=== PATIENT | female | born 1960 | race Caucasian/White ===

== ENCOUNTER 2020-11-10 10:53 | Inpatient (IN) | payer OTHER ==
[~2020-11-10] VITALS: Ht 157.5 cm; Wt 77.2 kg
--- NOTE | 2020-11-10 10:53 | NUR ---
PT TO ROOM WITH STEADY GAIT
[2020-11-10 11:31] LABS: HEMATOCRIT 46.9 % (37.0-47.0); HEMOGLOBIN 15.8 g/dl (12.0-16.0); IMMATURE GRANULOCYTES 1.9 % (0.0-5.0); MEAN CELL VOLUME 97.7 fL CALC (80.0-100.0); MEAN CORPUSCULAR HGB 32.9 pG CALC (26.0-32.0); MEAN CORPUSCULAR HGB CONC 33.7 g/dL CAL (32.0-36.0); NEUT# 9.87 thou/uL (2.00-7.15); RED BLOOD COUNT 4.8 mill/uL (4.20-5.60); RED CELL DISTRI WIDTH 12.1 % (11.5-15.5)
[2020-11-10 11:42] LABS: ALBUMIN 3.9 g/dL (3.2-5.0); ALKALINE PHOSPHATASE 83 u/l (38-126); ANION GAP 12 (6-22 (CALC)); BILIRUBIN, TOTAL 0.7 mg/dL (0.0-1.4); BUN 14 mg/dL (8-23); BUN/CREATININE RATIO 19 (12-20 (CALC)); CARBON DIOXIDE 29 mmol/l (22-30); CHLORIDE 98 mmol/l (95-108); CREATININE 0.8 mg/dL (0.5-1.0); GFR > 60 ML/MIN (>=60 (CALC)); GFR FOR AFR.AMER. > 60 ML/MIN (>=60 (CALC)); POTASSIUM 3.7 mmol/l (3.5-5.1); SGOT/AST 176 u/l (9-36); SODIUM 136 mmol/l (137-146); TOTAL PROTEIN 7.4 g/dL (6.3-8.2)
[2020-11-10 11:54] LABS: MYOGLOBIN 69 ng/mL (0 - 62)
--- NOTE | 2020-11-10 12:06 | NUR ---
PT RESTING IN BED. VITALS STABLE ON MONITOR. 93% ON 4L/NC, NO DISTRESS NOTED. IV MEDS INFUSING WITHOUT DIFFICULTY. CALL LIGHT WITHIN REACH.
--- NOTE | 2020-11-10 12:53 | NUR ---
PT UP TO BATHROOM WITH STEADY GAIT. ATTACHED TO MONITOR, VITALS STABLE. IV MEDS INFUSING. WILL CONTINUE TO MONITOR.
[2020-11-10 13:17] LABS: URINE BILIRUBIN - DIPSTICK NEGATIVE (NEGATIVE); URINE BLOOD DIPSTICK NEGATIVE (NEGATIVE); URINE COLOR YELLOW; URINE GLUCOSE - DIPSTICK NEGATIVE (NEGATIVE); URINE KETONE NEGATIVE (NEGATIVE); URINE LEUK ESTERASE TRACE (NEGATIVE); URINE PROTEIN - DIPSTICK NEGATIVE (NEG-TRACE); URINE UROBILINOGEN - DIPSTICK 0.2 E.U./dL (0.2)
[2020-11-10 13:21] LABS: URINE NITRITE - DIPSTICK NEGATIVE (Negative)
--- NOTE | 2020-11-10 14:12 | NUR ---
IV MEDS INFUSING WITHOUT DIFFICTULY. STABLE ON MONITOR. CALL LIGHT WITHIN REACH. WILL CONTINUE TO MONITOR PENDING ADMISSION.
--- NOTE | 2020-11-10 14:58 | NUR ---
REPORT GIVEN TO CONI RN, PT ADMITTED TO ICU RM1
--- NOTE | 2020-11-10 15:30 | NUR ---
PT TO ROOM FROM ER PER STRETCHER, PT ALERT/ORIENTED X3, ON 2 LITRES OF OXYGEN N/C WITH SATS 96%, STATES WAS SEEN AT [facility] ER TWO WEEKS AGO FOR COMPLAINT OF SOB AND DIAGNOSED WITH COVID AND STARTED ON ANTIBIOTICS, PT STATES HER HAD COVID THE WEEK BEFORE. SHE STATES SHE JUST WASNT GETTING OVER IT, AND DECIDED TO COME IN TO ER TODAY TO SEE IF SHE NEEDED MORE ANTIBIOTICS. SHE WAS ADMITTED FOR COVID/PNEUMONIA/POSSIBLE SEPSIS AND HYPOXIA. SHE HAS A COUGH THAT IS PRODUCTIVE. LUNGS HEAR RHONCHI, NORMAL SINUS RHYTHM, CALL LIGHT WITHIN REACH, ADVISED PT OF MEDICATIONS AND TESTING WE WOULD DO. SIDE RAILS UP AND ADVISED TO USE CALL LIGHT. PT VOICES UNDERSTANDING. TALKING ON PHONE TO AT THIS TIME WITHOUT ANY SIGNS OF SOB. DENIES ANY COMPLAINTS AT THIS TIME.
[2020-11-10 15:55] VITALS: BP 134/86
--- NOTE | 2020-11-10 17:30 | NUR ---
PT AMBLATORY TO BATHROOM BY SELF. ONCE BACK IN BED, PLACED PULSE OX BACK ON AND PT HAD DROPPED TO 89% WHILE AMBULATING. DENIED ANY INCREASED SOB. PLACED BACK ON O2 @ 2 LITRES N/C, AND SATS WENT BACK UP TO 94%. GAVE PT MEAL TRAY, BUT PT DID NOT LIKE WHAT WAS ON TRAY.
[2020-11-10 18:06] VITALS: BP 135/82
[2020-11-10 20:02] VITALS: BP 129/86
--- NOTE | 2020-11-10 20:30 | NUR ---
patient requesting tylenol with bed time medication for general pain from back surgery.
--- NOTE | 2020-11-10 20:32 | NUR ---
PT DISCONNECTED FROM MONITORS AT THIS TIME. PT UP TO BATHROOM TO VOID, AMBULATED WITHOUT ASSISTANCE. NO APPARENT DISTRESS NOTED. WILL CONTINUE TO MONITOR.
[2020-11-10 22:02] VITALS: BP 116/78
--- NOTE | 2020-11-10 22:23 | NUR ---
REPORT GIVEN BY CONI. PATIENT RESTING IN BED WATCHING TV. RESP EVEN AND UN LABORED, 2L VIA NC IN PLACE. NO S/S OF DISTRESS NOTED. FALL AND SAFTEY PRECAUTIONS IN PLACE. IV INFUSING IV FLUIDS. PLAN OF CARE DISCUSSED. PATIENT INFORM TO CALL WITH ANY QUESTIONS OR CONCERNS.
--- NOTE | 2020-11-10 23:21 | NUR ---
PATIENT RESTING WITH EYES CLOSED. RESP EVEN AND UNLABORED. NO S/S OF DISTRESS NOTED.
[2020-11-11] VITALS (10 sets, daily range): BP systolic 111–154; BP diastolic 70–94
--- NOTE | 2020-11-11 02:00 | NUR ---
PATIENT RESTING WITH EYES CLOSED. RESP EVEN AND UNLABORED. NO S/S OF DISTRESS NOTED.
--- NOTE | 2020-11-11 05:00 | NUR ---
PATIENT AWAKE AND REQUESTING TYLENOL FOR GENERAL PAIN. RESP EVEN AND UNLABORED. NO S/S OF DISTRESS NOTED. FALL AND SAFTEY PRECAUTIONS IN PLACE.
[2020-11-11 07:18] LABS: HEMATOCRIT 41.9 % (37.0-47.0); HEMOGLOBIN 14.2 g/dl (12.0-16.0); IMMATURE GRANULOCYTES 1.9 % (0.0-5.0); MEAN CELL VOLUME 97.7 fL CALC (80.0-100.0); MEAN CORPUSCULAR HGB 33.1 pG CALC (26.0-32.0); MEAN CORPUSCULAR HGB CONC 33.9 g/dL CAL (32.0-36.0); NEUT# 6.74 thou/uL (2.00-7.15); RED BLOOD COUNT 4.29 mill/uL (4.20-5.60); RED CELL DISTRI WIDTH 12.2 % (11.5-15.5)
[2020-11-11 07:56] LABS: ALBUMIN 3.1 g/dL (3.2-5.0); ALKALINE PHOSPHATASE 69 u/l (38-126); ANION GAP 8 (6-22 (CALC)); BILIRUBIN, TOTAL 0.5 mg/dL (0.0-1.4); BUN 13 mg/dL (8-23); BUN/CREATININE RATIO 20 (12-20 (CALC)); C-REACTIVE PROTEIN 4.7 mg/dL (0-0.9); CARBON DIOXIDE 27 mmol/l (22-30); CHLORIDE 105 mmol/l (95-108); CREATININE 0.6 mg/dL (0.5-1.0); GFR > 60 ML/MIN (>=60 (CALC)); GFR FOR AFR.AMER. > 60 ML/MIN (>=60 (CALC)); POTASSIUM 4.4 mmol/l (3.5-5.1); SGOT/AST 68 u/l (9-36); SODIUM 136 mmol/l (137-146); TOTAL PROTEIN 5.9 g/dL (6.3-8.2)
--- NOTE | 2020-11-11 08:00 | NUR ---
PT AXOX3 , DENIES PAIN. O2 2L NC O2 SATS 94 %. NO RESP DISTRESS NOTED. PT DENIES SOB. IV INFUSING. NO REDNESS NO SWELLING NOTED AT THE SITE. EDUCATED ON VENTOLIN PUFFER, WHEN AND HOW TO USE. PT STATES " I FEEL BETTER TODAY THAN YESTERDAY" . REPOSITIOEND FOR MORNING MEAL. SIDE RAILS UP CALL LIGHT IN REACH, BE LOCKED IN LOW POSITION, ALL SAFTY MEASURES IN PLACE. INSTRUCTED PT TO CALL WITH ANY ISSUES. WILL CONTINUE TO MONIOTR THE PATIENT.
--- NOTE | 2020-11-11 10:00 | NUR ---
OUT OF THE BED TO THE BATHROOM WITH ASST. PT VOIDING. NOTED NO SOB NO PAIN. PT COUGED NONE PRODUCTIVE COUGH. BACK TO BED. NOTED O2 SATS DOWN TO 83% RA, O2 BACK IN PLACE, O2 SATS 93% 2L NC. REPOSITIOEND FOR COMFORT, SIDE RAILS UP CALL LIGHT IN REACH BED LOCKED IN LOW POSITION, WILL CONTINUE TO MONIOTR THE PATIENT. NO DISTRESS BOTED AT THIS TIME.
--- NOTE | 2020-11-11 12:10 | NUR ---
C/O PAIN IN HER BACK. MED PER ORDER. EDUCATED ON TRANSFERE TO THE MED/URG FLOOR. NO RESP DISTRESS NOTED. PT ENCOURAGED TO EAT HER LUNCH. WILL CONTINUE TO MONIOTR THE PATIENT.
--- NOTE | 2020-11-11 12:12 | NUR ---
REPORT GIVEN TO [facility] NURSE.
--- NOTE | 2020-11-11 12:45 | NUR ---
PT ARRIVED TO MED-SURG FLOOR VIA STRETCHER IN STABLE CONDITION FROM ICU ACCOMPANIED BY NURSE WESTON;VS AND ASSESSMENT WERE COMPLETED;PT WAS ORIENTED TO ROOM, CALL LIGHT, TV AND BED;HEART SOUNDS ARE REGULAR IN RATE AND RHYTHM;LUNG SOUNDS ARE CLEAR AND DIMINISHED IN LOWER LOBES;RESPIRATIONS ARE EVEN AND UNLABORED ON O2@2L VIA NC;TELE IS IN PLACE;#20G IV IN RAC IS RUNNING NS@100ML/HR;IV SITE APPEARS FREE OF COMPLICATIONS AT THIS TIME;PT HAS SCDS IN PLACE;SKIN INTACT WITH NO EDEMA NOTED;PT IS A&OX3;SAFETY PRECAUTIONS IN PLACE;PT IS CURRENTLY ON ISOLATION PRECAUTIONS DUE TO COVID-19 DX;CALL LIGHT WITHIN REACH;BED IN LOWEST POSITION;PT ENCOURAGED TO CALL WITH ANY NEEDS OR CONCERNS;WILL CONTINUE TO MONITOR.
--- NOTE | 2020-11-11 12:57 | NUR ---
PT TAKEN TO THE MED SURG FLOOR VIA WHEEL CHAIR WITH O2.
--- NOTE | 2020-11-11 16:00 | NUR ---
PT WAS FOUND RESTING IN BEDSIDE CHAIR;O2@2L VIA NC IS IN PLACE;TELE IS IN PLACE;#20G IV IN RAC IS RUNNING NS@100ML/HR;IV SITE APPEARS FREE OF COMPLICATIONS AT THIS TIME;SAFETY PRECAUTIONS IN PLACE;CALL LIGHT WITHIN REACH;BED IN LOWEST POSITION;WILL CONTINUE TO MONITOR.
--- NOTE | 2020-11-11 16:00 | NUR ---
PT WAS FOUND RESTING IN BED IN SEMI-FOWLERS POSITION;PT REQUESTED TO SIT IN BEDSIDE CHAIR;PT WAS ASSISTED TO BEDSIDE CHAIR;TELE IS IN PLACE;O2@2L VIA NC IS IN PLACE;#20G IV IN RAC IS RUNNING NS@100ML/HR;IV SITE APPEARS FREE OF COMPLICATIONS AT THIS TIME;SAFETY PRECAUTIONS IN PLACE;CALL LIGHT WITHIN REACH;WILL CONTINUE TO MONITOR.
--- NOTE | 2020-11-11 19:02 | NUR ---
REPORT FROM ED TORRE. ASSUMED PT CARE.
--- NOTE | 2020-11-11 20:55 | NUR ---
PT NOTED RESTING IN BED WATCHING TV. ALERT AND ORIENTED X4. NO APPARENT DISTRESS NOTED. RESPIRATIONS EVEN AND UNLABORED. O2 @2L/M VIA NC. IV SITE APPEARS HEALTHY WITH IVF INFUSING. ACCOUNTS RECEIVABLE ASSOCIATE IN PLACE. PT DENIES ANY PAIN OR DISCOMFORT. DISCUSSED POC. PT VERBALIZED UNDERSTANDING. CALL LIGHT WITHIN REACH. WILL CONTINUE TO MONITOR.
--- NOTE | 2020-11-12 00:23 | NUR ---
PT RESTING IN BED WITH EYES CLOSED. NO APPARENT DISTRESS NOTED. RESPIRATIONS EVEN AND UNLABORED. 02 @ 2L/M VIA NC. IVF INFUSING WITHOUT DIFFICULTY. CALL LIGHT WITHIN REACH. WILL CONTINUE TO MONITOR.
--- NOTE | 2020-11-12 01:36 | NUR ---
ASSIST PT TO BATHROOM. PT VOIDED WITHOUT DIFFICULTY. MEDICATED WITH PRN APAP FOR GENERALIZED BACK PAIN. NO APPARENT DISTRESS NOTED. RESPIRATIONS EVEN AND UNLABORED. 02 @2L/M VIA NC. PT DENIES ANY OTHER CURRENT WANTS OR NEEDS. CALL LIGHT WITHIN REACH. WILL CONTINUE TO MONITOR.
[2020-11-12 03:55] VITALS: BP 141/85
[2020-11-12 05:27] LABS: ALKALINE PHOSPHATASE 62 u/l (38-126); ANION GAP 9 (6-22 (CALC)); BILIRUBIN, TOTAL 0.4 mg/dL (0.0-1.4); BUN 13 mg/dL (8-23); BUN/CREATININE RATIO 20 (12-20 (CALC)); CARBON DIOXIDE 27 mmol/l (22-30); CHLORIDE 104 mmol/l (95-108); CREATININE 0.6 mg/dL (0.5-1.0); GFR > 60 ML/MIN (>=60 (CALC)); GFR FOR AFR.AMER. > 60 ML/MIN (>=60 (CALC)); POTASSIUM 4.3 mmol/l (3.5-5.1); SGOT/AST 35 u/l (9-36); SODIUM 136 mmol/l (137-146); TOTAL PROTEIN 5.6 g/dL (6.3-8.2)
--- NOTE | 2020-11-12 08:50 | NUR ---
PATIENT IS SITTING IN THE RECLIENR. PATIENT IS ALERT AND ORIENT X3. PATIENT STATED SHE HAS HEADACHE. TELE IN PLACE. LUNGS SOUND DIMINISHED. 02 AT 2L VIA NC. PATIENT O2 IS 91-92%. PATIENT DENIES ANY OTHER NEEDS AT THIS TIME. CALL LIGHT IN REACH.
[2020-11-12 09:11] VITALS: BP 129/80
[2020-11-12 11:05] VITALS: BP 138/82
--- NOTE | 2020-11-12 11:40 | NUR ---
PATIENT IS SITTING IN THE RECLINER. PATIENT STATED SHE HAS NOT HAD BM FOR A FEW DAYS. MEDICATED PATIENT WITH MIRALAX. PATIENT DENIES ANY OTHER NEEDS AT THIS TIME. CALL LIGHT IN REACH.
[2020-11-12 14:20] VITALS: BP 144/84
--- NOTE | 2020-11-12 16:15 | NUR ---
PATIENT IS SITTING IN THE RECLINER. PATIENT DENIES SOB AT THIS TIME JUST WHEN SHE MOVES. 02 AT 2L VIA NC. PATIENT STATED NO BM YET BUT PASSING GAS. PATIENT DENIES NEEDS AT THIS TIME. CALL LIGHT IN REACH.
[2020-11-12 19:00] VITALS: BP 126/70
--- NOTE | 2020-11-12 19:01 | NUR ---
REPORT FROM CRISTINA TORRE. ASSUMED PT CARE.
--- NOTE | 2020-11-12 20:20 | NUR ---
PT NOTED RESTING IN BED WATCHING TV. ALERT AND ORIENTED X4. NO APPARENT DISTRESS NOTED. RESPIRATIONS EVEN AND UNLABORED. O2 @2L/M VIA NC. IV SITE APPEARS HEALTHY WITH IVF AT KVO. OIL FIELD RIG BUILDER IN PLACE. PT DENIES ANY PAIN OR DISCOMFORT. DISCUSSED POC. PT VERBALIZED UNDERSTANDING. CALL LIGHT WITHIN REACH. WILL CONTINUE TO MONITOR.
[2020-11-12 23:30] VITALS: BP 121/80
--- NOTE | 2020-11-12 23:45 | NUR ---
PT RESTING IN BED WITH EYES CLOSED. NO APPARENT DISTRESS NOTED. RESPIRATIONS EVEN AND UNLABORED. 02 @ 2L/M VIA NC. IVF INFUSING WITHOUT DIFFICULTY. VSS. CALL LIGHT WITHIN REACH. WILL CONTINUE TO MONITOR.
--- NOTE | 2020-11-13 03:06 | NUR ---
PT RESTING IN BED WITH EYES CLOSED. NO APPARENT DISTRESS NOTED. RESPIRATIONS EVEN AND UNLABORED. IVF INFUSING WITHOUT DIFFICULTY. CALL LIGHT WITHIN REACH. WILL CONTINUE TO MONITOR.
[2020-11-13 04:00] VITALS: BP 129/83
[2020-11-13 05:27] LABS: HEMATOCRIT 42.4 % (37.0-47.0); HEMOGLOBIN 14.3 g/dl (12.0-16.0); IMMATURE GRANULOCYTES 1.7 % (0.0-5.0); MEAN CELL VOLUME 97.7 fL CALC (80.0-100.0); MEAN CORPUSCULAR HGB 32.9 pG CALC (26.0-32.0); MEAN CORPUSCULAR HGB CONC 33.7 g/dL CAL (32.0-36.0); NEUT# 6.78 thou/uL (2.00-7.15); RED BLOOD COUNT 4.34 mill/uL (4.20-5.60); RED CELL DISTRI WIDTH 12.3 % (11.5-15.5)
[2020-11-13 06:04] LABS: ALBUMIN 3.2 g/dL (3.2-5.0); ALKALINE PHOSPHATASE 73 u/l (38-126); ANION GAP 10 (6-22 (CALC)); BILIRUBIN, TOTAL 0.4 mg/dL (0.0-1.4); BUN 16 mg/dL (8-23); BUN/CREATININE RATIO 25 (12-20 (CALC)); C-REACTIVE PROTEIN 3.9 mg/dL (0-0.9); CARBON DIOXIDE 29 mmol/l (22-30); CHLORIDE 102 mmol/l (95-108); CREATININE 0.6 mg/dL (0.5-1.0); GFR > 60 ML/MIN (>=60 (CALC)); GFR FOR AFR.AMER. > 60 ML/MIN (>=60 (CALC)); POTASSIUM 4.5 mmol/l (3.5-5.1); SGOT/AST 30 u/l (9-36); SODIUM 136 mmol/l (137-146)
[2020-11-13 09:06] VITALS: BP 136/87
--- NOTE | 2020-11-13 09:06 | NUR ---
PATIENT IS SITTING IN THE RECLINER. ASSESSMENT DONE. TELE IN PLACE. PATIENT STATED SHE FEELS BETTER TODAY. LUNG SOUND DIMINISHED. PATIENT HAS O2 OFF AND O2 READING 88%. APPLIED 02 AT 2L VIA NC AND O2 READING NOW IS 91% PATIENT STATED SHE HAS A HEADACHE. PATIENT STATED SHE HAD A SMALL BM YESTERDAY. PO FLUIDS PROVIDED. PATIENT DENIES ANY OTHER NEEDS AT THIS TIME. CALL LIGHT IN REACH.
[2020-11-13 10:44] VITALS: BP 136/76
--- NOTE | 2020-11-13 12:50 | NUR ---
PATIENT IS SITTING IN THE RECLIENR AND NO S/S OF DISTRESS NOTED. SNACKS AND PO FLUIDS PROVIDED. PATIENT DENIES ANY NEEDS AT THIS TIME. CALL LIGHT IN REACH.
[2020-11-13 15:25] VITALS: BP 136/86
--- NOTE | 2020-11-13 15:37 | NUR ---
PATIENT IS SITTING IN THE RECLINER WITH NO DISTRESS NOTED. O2 AT 2L VIA NC. PATIENT STATED TYLENOL HELPED WITH HER HEADACE. PATIENT DENIES NEEDS AT THIS TIME. CALL LIGHT IN REACH.
--- NOTE | 2020-11-13 16:19 | NUR ---
PATIENT IS RESTING IN BED WITH NO DISTRESS NOTED. PATIENT DENIES NEEDS AT THIS TIME. CALL LIGHT IN REACH.
[2020-11-13 19:00] VITALS: BP 138/80
--- NOTE | 2020-11-13 20:00 | NUR ---
PATIENT IS ALERT AND ORIENTED X3. ABLE TO MAKE NEEDS KNOWN. RESPIRATIONS EASY ON 2L N/C. ON TELEMETRY. HEART RATE REGULAR. ABDOM SOFT. C/O PAIN 07/13, WILL BRING TYLENOL TONIGHT WITH PM MEDS. NO ACUTE DISTRESS OBSERVED. BED IN LOW POSITION. CALL LIGHT WITHIN REACH.
[2020-11-14] VITALS: BP 130/78
--- NOTE | 2020-11-14 | NUR ---
PATIENT RESTING WITH EYES CLOSED. RESPIRATIONS EASY. NO ACUTE DISTRESS OBSERVED.
[2020-11-14 04:00] VITALS: BP 138/79
[2020-11-14 05:50] LABS: ALBUMIN 3.2 g/dL (3.2-5.0); ALKALINE PHOSPHATASE 74 u/l (38-126); ANION GAP 10 (6-22 (CALC)); BILIRUBIN, TOTAL 0.4 mg/dL (0.0-1.4); BUN 15 mg/dL (8-23); BUN/CREATININE RATIO 25 (12-20 (CALC)); CARBON DIOXIDE 29 mmol/l (22-30); CHLORIDE 101 mmol/l (95-108); CREATININE 0.6 mg/dL (0.5-1.0); GFR > 60 ML/MIN (>=60 (CALC)); GFR FOR AFR.AMER. > 60 ML/MIN (>=60 (CALC)); POTASSIUM 4.5 mmol/l (3.5-5.1); SGOT/AST 27 u/l (9-36); SODIUM 136 mmol/l (137-146)
--- NOTE | 2020-11-14 05:56 | NUR ---
NO REPORTS OF PAIN OR DISCOMFORT NOTED. BED IN LOW POSITION. CALL LIGHT WITHIN REACH.
--- NOTE | 2020-11-14 09:30 | NUR ---
PT SITTING UP IN RECLINER; PT C/O MACKAY 07/13; MEDICATED ORDERED; TELE MONITOR IN PLACE; CALL CHAN WITHIN REACH; WILL CONTINUE TO MONITOR.
[2020-11-14 10:30] VITALS: BP 116/74
--- NOTE | 2020-11-14 10:30 | NUR ---
DR. GRACE IN TO SEE PT; PLAN OF CARE DISCUSSED;
[2020-11-14] MEDS ORDERED: DEXAMETHASON6 MG PO (13:23)
[2020-11-14] MEDS ORDERED: ASPIRIN REGULA325 M1 PO (13:24)
[2020-11-14] MEDS ORDERED: ZITHROMAX250 MG PO (13:24)
[2020-11-14 14:58] VITALS: BP 107/65
[2020-11-14 19:00] VITALS: BP 112/69
--- NOTE | 2020-11-14 22:35 | NUR ---
PATIENT ASSESSMENT COMPLETE. CHARTED. PM MEDICATINS GIVEN. PATIENT AWAIT TO GO HOME. C/O VAD POSITION. VAD OUT WITH CATHETER INTACT PER PATIENT REQUEST NO NEW ATTEMPT. NO ACUTE DISTRESS. RESPIRATIONS UNLABORED. BED IN LOW POSITION. CALL LIGHT WITHIN REACH.
--- NOTE | 2020-11-15 01:36 | NUR ---
PATIENT RESTING QUIETLY. NO ACUTE DISTRESS.
[2020-11-15 05:45] VITALS: BP 124/69
--- NOTE | 2020-11-15 08:22 | NUR ---
PT ALERT ORIENTED AMBULATING AD SUSANNA IN THE ROOM VSS PT WAITHING FOR PORTABLE O2 TO DISCHARGE HOME THIS AM DENIED PAIN OR ANIES DISCOMFORT AT PRESENT TIME.
[2020-11-15 09:00] VITALS: BP 119/72
--- NOTE | 2020-11-15 12:00 | NUR ---
PT IS SITTING IN THE CHAIR, NO DISTRESS N OTED. IV SITE IS FREE FROM REDNESS OR EDMEA.
--- NOTE | 2020-11-15 15:00 | NUR ---
NO IV SITE DICHARGE INSTRUCTIONS GIVEN BY LuisaRN AGENCY RN. PT VERBALIZED UNDERSTANDING. FAMILY WAITING IS HER TO TRANSPORT PT HOME. O2 INPLACE. Discharge instructions given. Patient verbalizes understanding of same. Discharged in stable condition via Wheelchair to Home with family. All belongings sent with pt.
== END 2020-11-15 14:25 | disposition home or self-care (01) | DRG 871 ==
LOC: ED 10:53 → ED-I 12:10 → ED 13:28 → ICU 13:29 → MS2 11-11 12:45
PROVIDERS: Emergency Medicine; Physician Assistant; ADMIT Internal Medicine; ATTEND Internal Medicine
PROC: XW033E5 Introduction of Remdesivir Anti-infective into Peripheral Vein, Percutaneous Approach, New Technology Group 5 (ICD-10-PCS; principal; 2020-11-10)
DX: A41.89 Other specified sepsis (principal); U07.1 COVID-19; J12.82 Pneumonia due to coronavirus disease 2019; J96.01 Acute respiratory failure with hypoxia; J45.909 Unspecified asthma, uncomplicated; M48.00 Spinal stenosis, site unspecified; K59.00 Constipation, unspecified
CPT/HCPCS: J1650; Q9967